=== PATIENT | male | born 1955 | race Caucasian/White ===

== ENCOUNTER 2019-12-26 08:17 | Inpatient (IN) ==
--- NOTE | 2019-12-17 11:13 | Anesthesiology Consultation ---
Date of Service December 17, 2019 Assessment & Plan (1) Encounter for pre-operative examination: Chart Review Chart Review: Acceptable Risk for Surgery (pending preop Covid testing results ) and Patient NOT seen in Pre Admission Testing Per nursing assessment 12/15/2019, patient denies any recent travel. No known Covid positive contacts or Covid related symptoms. Scheduled for preop Covid testing 12/19/[address] Brown's office. Seen by cardio 11/28/2019 = patient presents for preop cardiovascular risk assessment. Patient is to " undergo an intermediate cardiovascular risk (orthopedic) surgery. Over the past 30 days, there has been no active cardiovascular conditions defined as: Acute coronary syndrome, decompensated HF, severe, symptomatic valvular heart disease or symptomatic cardiac arrhythmia. Patient has no cardiovascular risk factors defined as: Ischemic heart disease, prior/compensated heart failure, diabetes requiring insulin or renal failure with creatinine greater than 2. Most recently had an exercise treadmill stress test completed. His exercise was limited due to his back condition. He did achieve 5 METS on the treadmill. The EKG is nondiagnostic for ischemia due to not achieving 85% of maximum predicted heart rate. Patient recently had a transthoracic echocardiogram completed which demonstrated normal left ventricular systolic function with an ejection fraction of 55%. There is no significant valvular disease." BP in clinic today is poorly controlled. Long history of hypertension. Do suspect that high pain level in his back and left lower extremity is a major contributor to hypertension. Will need aggressive management of hypertension going forward. Patient prescribed clonidine 0.2 mg at bedtime. Admits to missing doses. Elevated BP may be partly due to rebound hypertension. Clinically he has no neurological symptoms, chest pain or dyspnea beyond what he normally experiences. At this time I have urged medication comp liance. " Based on his history, physical examination and the above findings, do not recommend further invasive or noninvasive cardiovascular testing or procedures. Prior to undergoing orthopedic surgery. Patient should be considered a low to intermediate cardiovascular risk candidate." Patient will follow-up with cardio postoperatively to continue management of blood pressure. History Surgery Operation Date: 12/26/19 07:45 Proposed Procedures p T12-L4 Deompression Fusion, Spinal Cord Monitoring - René Brown, DO Height/Weight Height: 5 ft 8 in Weight: 115.666 kg Allergies Allergy/AdvReac Type Severity Reaction Status Date / Time diclofenac [From Voltaren] Allergy Hives Verified 12/15/19 11:51 Medications Home Medications Medication Instructions Recorded Confirmed Last Taken clonidine HCl 0.3 mg PO HS 04/24/19 12/15/19 Unknown cyclobenzaprine 10 mg PO BID 04/24/19 12/15/19 Unknown morphine 15 mg PO BID 04/24/19 12/15/19 Unknown tramadol 50 mg PO Q6H PRN 04/24/19 12/15/19 Unknown aspirin 650 mg PO QAM 12/15/19 12/15/19 Unknown lisinopril [Prinivil] 20 mg PO QAM 12/15/19 12/15/19 Unknown naproxen [Naprosyn] 250 mg PO BID PRN 12/15/19 12/15/19 Unknown sennosides-docusate sodium 1 tab-cap PO UD PRN 12/15/19 12/15/19 Unknown [Senokot-S] Past Medical History Medical History Anxiety Hearing deficit Bilaterally Hyperlipidemia Hypertension Obesity Poor historian Spinal stenosis Past Family History Family History Mother COPD (chronic obstructive pulmonary disease) Other No family history of adverse response to anesthesia Past Surgical History Surgical History History of repair of rotator cuff LEFT History of tonsillectomy Hx of neck surgery REPAIR FROM ACCIDENT> ROM UP AND DOWN LIMITED Social History Smoking Status: Current every day smoker tobacco type: cigarettes Smoking cigarettes per day: 1 ppd Do You Dip or Chew Tobacco: No Hx Alcohol Use: Yes Alcohol type: beer alcohol intake frequency: a few times a month Hx Substance Use: No substance use type: does not use Testing Laboratory Results Laboratory Tests 11/20/19 11/20/19 11/20/19 13:53 13:53 13:53 WBC 8.35 Hgb 16.5 Hct 48.1 Plt Count 290 PT 10.5 INR 1.0 Sodium 141 Potassium 4.6 Chloride 108 H Carbon Dioxide 30 BUN 20 H Creatinine 1.37 Glucose 89 11/20/19= UA: Negative Electrocardiogram Date: 11/28/19 Sinus rhythm at 73 bpm. Incomplete right bundle branch block. Voltage criteria for LVH. Voltage criteria without ST/T abnormality may be normal. Chest X-Ray Date: 04/29/19 Findings: + NAD Chronic appearing left AC joint separation. Hiatal hernia may be present versus right Bochdalek hernia. Echocardiogram Date: 05/08/19 EF: 55% LV Function: normal Other Findings: + LVH (mild/concentric ) Valvular Disease: + no significant valvular disease Stress Test Date: 05/26/19 Type: exercise Inconclusive treadmill exercise stress test secondary to limited exercise tolerance on account of patient's back pain/spasms. There are no ischemic EKG changes at the level of exercise achieved. 5 METS achieved with MPHR of 73%.
[~2019-12-26 08:17] MED LIST: ACETAMINOPHEN 500 MG TAB PO SCH; ALBUMIN HUMAN 5% 12.5 GM/250 ML VIAL IV ONE; CeleBREX 200 MG CAP PO SCH; GABAPENTIN 300 MG CAP PO SCH; LR 15ML/HR IV SCH; ceFAZolin 2000MG 2,000 MG/15 ML SYR IV SCH
[2019-12-26] MEDS ORDERED: MIDAZOLAM HCL 1 MG/ML 2ML VIAL ONE (08:51)
[2019-12-26] MEDS ORDERED: fentaNYL citrate 100 MCG/2 ML VIAL ONE ×2 (08:52→14:06)
[2019-12-26] MEDS ORDERED: HYDROmorphone INJ 2 MG/ML SYR/VIAL ONE (08:52)
[2019-12-26] MEDS ORDERED: ONDANSETRON INJ 2 MG/ML 2 ML VIAL IV PRN ×2 (09:19→15:06)
[2019-12-26] MEDS ORDERED: HYDROmorphone INJ 2 MG/ML SYR/VIAL IV PRN (09:19)
[2019-12-26] MEDS ORDERED: ePHEDrine sulfate 50 MG/ML AMP IV PRN (09:19)
[2019-12-26] MEDS ORDERED: LABETALOL HCL IV 5 MG/ML 20ML IV PRN (09:19)
[2019-12-26] MEDS ORDERED: PHENYLEPHRINE 100MCG/ML 5ML SYR IV PRN (09:19)
[2019-12-26] MEDS ORDERED: ATROPINE SULFATE 0.1 MG/ML 10ML SYR IV PRN (09:19)
[2019-12-26] MEDS ORDERED: MEPERIDINE HCL 25 MG/ML CARP/VIAL IV PRN (09:19)
--- NOTE | 2019-12-26 09:51 | History & Physical Bridge Note ---
Date of Service December 26, 2019 History & Physical Bridge Note I have examined the patient, reviewed the History & Physical and in the interval since the performance of the History & Physical I have noted the following changes of clinical significance: no changes noted
--- NOTE | 2019-12-26 09:52 | History & Physical Report ---
Date of Service December 26, 2019 Assessment & Plan (1) Neurogenic claudication due to lumbar spinal stenosis: Admission and Anticipated Discharge Date Admission Date: T12-L4 decompression fusion History of Present Illness Chief Complaint: Back and bilateral leg pain Primary Care Provider: Kev Bray This is a 64-year-old male who presents with chronic persistent back and bilateral leg pain peer after failing course of nonoperative care is here for surgical intervention. Allergies Allergy/AdvReac Type Severity Reaction Status Date / Time diclofenac [From Voltaren] Allergy Hives Verified 12/26/19 09:25 Home Medications Home Medications Medication Instructions Recorded Confirmed Type clonidine HCl 0.3 mg PO HS 04/24/19 12/26/19 History cyclobenzaprine 10 mg PO BID 04/24/19 12/26/19 History morphine 15 mg PO BID 04/24/19 12/26/19 History tramadol 50 mg PO Q6H PRN 04/24/19 12/26/19 History aspirin 650 mg PO QAM 12/15/19 12/26/19 History lisinopril [Prinivil] 20 mg PO QAM 12/15/19 12/26/19 History naproxen [Naprosyn] 250 mg PO BID PRN 12/15/19 12/26/19 History sennosides-docusate sodium 1 tab-cap PO UD PRN 12/15/19 12/26/19 History [Senokot-S] Past Med/Surg History Medical History Anxiety Hearing deficit Bilaterally Hyperlipidemia Hypertension Obesity Poor historian Spinal stenosis Surgical History History of repair of rotator cuff LEFT History of tonsillectomy Hx of neck surgery REPAIR FROM ACCIDENT> ROM UP AND DOWN LIMITED Family History Mother COPD (chronic obstructive pulmonary disease) Other No family history of adverse response to anesthesia Social History Smoking Status: Current every day smoker Cigarettes Per Day: 1 ppd; Second Hand Exposure: No; Do You Dip or Chew Tobacco: No; Tobacco Cessation Education Requested by Patient: No Hx Alcohol Use: Yes Alcohol type: beer Hx Substance Use: No Preferred Language: Croatian Communication Ability: Effective Residential Housekeeper Required: No Beliefs That Will Affect Care: None Current Living Situation: Alone Feels Safe at Home: Yes Safety Concerns: Feels Safe At This Time Assistive Devices: Crutches Physical Exam Physical Exam: Patient is alert and oriented Heart regular rate and rhythm Lungs clear to auscultation Results & Data ([facility]) Vital Signs (Past 12 Hours) Vital Signs Temp Pulse Resp BP BP Pulse Ox 12/26/19 09:10 37.1 C 79 20 183/112 H 159/84 H 96
[2019-12-26] MEDS ORDERED: EPINEPHrine INJ 1 MG/ML AMP ONE (10:18)
[2019-12-26] MEDS ORDERED: BACITRACIN INJ 50,000 UNIT VIAL ONE (10:18)
[2019-12-26] MEDS ORDERED: BUPIVACAINE 0.5 % 5 MG/1 ML MPF 30ML VIAL ONE (10:18)
[2019-12-26] MEDS ORDERED: ALBUMIN HUMAN 5% 12.5 GM/250 ML VIAL IV ONE (10:21)
[2019-12-26] MEDS ORDERED: PROPOFOL IV EMULSION 10 MG/ML 20 ML VIAL IV ONE (10:56)
[2019-12-26] MEDS ORDERED: LARYING-O-JET KIT (LTA) ONE (10:56)
[2019-12-26] MEDS ORDERED: DEXAMETHASONE SOD INJ 4 MG/ML VIAL ONE (10:56)
[2019-12-26] MEDS ORDERED: GLYCOPYRROLATE 0.2 MG/ML VIAL ONE (10:56)
[2019-12-26] MEDS ORDERED: NEOSTIGMINE METHYLSULFATE 1 MG/ML 10ML VIAL ONE (10:56)
[2019-12-26] MEDS ORDERED: ONDANSETRON INJ 2 MG/ML 2 ML VIAL ONE (10:56)
[2019-12-26] MEDS ORDERED: LIDOCAINE HCL 2% 2 ML VIAL/AMP(20MG/ML) INFIL ONE (10:56)
[2019-12-26] MEDS ORDERED: ROCURONIUM BROMIDE 10 MG/ML 5 ML VIAL IV ONE (10:56)
[2019-12-26] MEDS ORDERED: KETAMINE 50 MG/5 ML SYRINGE ONE (11:02)
[2019-12-26] MEDS ORDERED: FLOSEAL HEMOSTATIC MATRIX 10ML TOP ONE (11:06)
[2019-12-26] MEDS ORDERED: PHENYLEPHRINE 100MCG/ML 5ML SYR ONE (11:37)
--- NOTE | 2019-12-26 13:33 | Operative Report ---
Post Operative Report Pre & Post Diagnosis Operation Date: 12/26/19 10:25 Pre-Op Diagnosis: Neurogenic claudication due to lumbar spinal stenosis Post-Op Diagnosis: Neurogenic claudication due to lumbar spinal stenosis I identified the patient and participated in the time-out.: Yes Procedure Operation Date: 12/26/19 10:25 Actual Procedures #1 lumbar decompression with bilateral medial facetectomies and foraminotomies L1-2, L2-3 and L3-4. #2 posterior spinal fusion T11-T12, T12-L1, L1-L2, L2-L3 and L3-L4. #3 placement posterior segmental instrumentation T12-L4. #4 interbody fusion L3-4. #5 placement of peek cage 12 x 26 mm at L3-4. #6 placement locally harvested morselized autograft in the posterior lateral gutters. #7 placement infuse collagen sponge, master graft in the posterior lateral gutters and osteopenic body space. Surgeon René Brown, DO Loader Machine David Oneill Estimated Blood Loss 500 Findings See Below The patient is 5 foot 8 inches tall weighing over 110 kg with a BMI in excess of 37. The patient's body habitus did add significant technical difficulty requiring her deepest retractors and longest instruments in order to perform his procedure. This at least 50% increase to the operative time. Specimens None Indications This is a 64-year-old male who presents with above-mentioned diagnosis after failing course of nonoperative care is here for surgical invention. Description of Procedure Patient was met with identified informed consent obtained. Patient was then taken to the operative suite underwent intubation placed in the prone position the Oscar table atop the Gera frame. All bony prominences well-padded eyes inspected to ensure no external pressure placed upon up at this point the thoracolumbar spine was prepped and draped in a normal sterile fashion. Sharp dissection with the assistance of Bovie cautery was performed down to and exposing the lamina and transverse processes of T10-11 T12 L1-L2-L3 and L4 bilaterally. From a caudal cephalad fashion complete laminectomy of all 3 L2 and L1 was performed including bilateral medial facetectomies and foraminotomies addressing severe spinal stenosis. Pedicle screws were then placed in T12-L1 L2-L3-L4 bilaterally with assistance of fluoroscopy and appropriately sized prachi placed. By way of a transforaminal portion left complete discectomy of L3-4 was performed endplates curetted to subcortical being bone and a 12 x 26 mm peek cage filled with osteobone graft tapped in position. The rods were then locked in final position bilaterally. The transverse processes of T11-T12 L1-L2-L3 and L4 were then burred to subcortical bleeding bone. Infuse collagen sponge master graft and local autograft was placed in the posterior lateral gutters. 15 round ARNULFO drain inserted. The incision was then closed with 1 Vicryl in the fascia 2-0 Vicryl subcutaneously and 4 Monocryl for final skin closure. Steri-Strip sterile dressings placed. Patient will continue PACU stable condition. Please note spinal cord monitoring was utilized at the procedure no changes noted. Lastly David Oneill was present for the entire surgery involved the patient positioning complex portions of the surgery and final skin closure. I attest to the content of the Intraoperative Record and any orders documented therein. Any exceptions are noted below.
--- NOTE | 2019-12-26 13:49 | Fluoroscopy Report ---
INTRAOPERATIVE RADIOGRAPHS SOCIAL HISTORY: T12-L4 spinal fusion. Fluoroscopy time: 40 seconds. FINDINGS: 4 spot fluoroscopic views of the lumbar spine are presented. There has been discectomy at L 3-L4 with laminectomy and posterior fusion from T12-L4. Interpedicular screws are present at all leve ls. The orthopedic hardware appears intact. IMPRESSION: Intraoperative images from T12-L4 spinal fusion as above. Electronically signed by: Silvano Pfeiffer M.D. 12/26/2019 1:47 PM
[2019-12-26] MEDS: fentaNYL citrate 100 MCG/2 ML VIAL IV PRN ×4 (14:18→14:33)
--- NOTE | 2019-12-26 14:28 | Anesthesiology Progress Note ---
Date of Service December 26, 2019 Anesthesia Post Procedure Vital Signs Vital Signs: Temp Pulse Pulse Resp BP BP Pulse Ox 12/26/19 14:20 75 14 145/94 H 100 12/26/19 14:11 36.1 C L 89 16 151/92 H 98 12/26/19 09:10 37.1 C 79 20 183/112 H 159/84 H 96 Pain Intensity Left Hip: Pain Intensity: 2 Back: Pain Intensity: 2 Transfer of Care Handoff Completed per policy Notes Mental Status: alert / awake / arousable Patient Amnestic to Procedure: Yes Nausea / Vomiting: adequately controlled Pain: adequately controlled Airway Patency, RR, SpO2: stable & adequate BP & HR: stable & adequate Hydration State: stable & adequate Anesthetic Complications: no major complications apparent and Pt Satisfied with anesthetic care
[2019-12-26] MEDS ORDERED: SOD PHOSPHATE/SOD BIPHOSPHATE ENEMA 132 ML BTL PR PRN (15:06)
[2019-12-26] MEDS ORDERED: ONDANSETRON 4 MG OD TAB PO PRN (15:06)
[2019-12-26] MEDS ORDERED: ALUMINUM/MAGNESIUM SUSP 30 ML UDC PO PRN (15:06)
[2019-12-26] MEDS ORDERED: DO NOT ADMINISTER FLU VACCINE PRN (15:06)
[2019-12-26] MEDS ORDERED: HYDROmorphone INJ 0.5 MG/0.5 ML SYR IV PRN (15:06)
[2019-12-26] MEDS ORDERED: PROMETHAZINE HCL 12.5 MG in SODIUM CHLORIDE 0.9% 50 ML IV PRN (15:06)
[2019-12-26] MEDS ORDERED: MAGNESIUM HYDROXIDE SUSP 30 ML UDC PO PRN (15:06)
[2019-12-26] MEDS ORDERED: diphenhydrAMINE Capsule 25 MG CAP PO PRN (15:06)
[2019-12-26] MEDS ORDERED: ACETAMINOPHEN 1,000 MG/100 ML VIAL IV PRN (15:06)
[2019-12-26] MEDS ORDERED: LORazepam 0.5 MG/1 ML VIAL IV PRN (15:06)
[2019-12-26] MEDS ORDERED: METOCLOPRAMIDE HCL INJ 5 MG/ML 2 ML VIAL IV PRN (15:06)
[2019-12-26] MEDS ORDERED: traMADol HCL 50 MG TABLET PO PRN (15:06)
[2019-12-26] MEDS ORDERED: NALOXONE HCL 0.4 MG/1 ML VIAL/CARP IV PRN (15:06)
[2019-12-26] MEDS ORDERED: DO NOT ADMINISTER PNEUMOCOCCAL VACCINE PRN (15:06)
[2019-12-26] MEDS ORDERED: hydrOXYzine HCl 25 MG TAB PO PRN (15:06)
[2019-12-26] MEDS ORDERED: FAMOTIDINE 20 MG TAB PO PRN (15:06)
[2019-12-26] MEDS ORDERED: DOCUSATE SODIUM/SENNA 50/8.6MG TAB PO PRN (15:06)
[2019-12-26] MEDS ORDERED: bisacodyL 10 MG SUPP PR PRN (15:06)
[2019-12-26] MEDS ORDERED: ACETAMINOPHEN 500 MG TAB PO PRN (15:06)
[2019-12-26] MEDS: SODIUM CHLORIDE 0.9% 1000ML 1,000 ML IV SCH ×2 (15:56→22:05)
[2019-12-26] MEDS: HYDROmorphone INJ 1 MG/ML SYRINGE IV PRN (16:00)
--- NOTE | 2019-12-26 17:50 | Hospitalist Consultation ---
Date of Consultation December 26, 2019 Assessment & Plan (1) Neurogenic claudication due to lumbar spinal stenosis: - POD#0 T12-L4 decompression and fusion by Dr. Brown - activity and wound care orders as per ortho - pain control with bowel regimen - PT/OT - monitor H/H for acute blood loss anemia and transfuse blood products PRN - EBL 500 cc (2) Hypertension: -BP mildly elevated, pain possibly contributing -Did not take morning dose of lisinopril, will give lisinopril 20 mg p.o. now -Continue home dose of clonidine at bedtime (3) DVT prophylaxis: -TEDs/SCDs as per spine Ortho Thank you for this consultation. We will follow the patient with you during their hospital stay. You can reach a member of the [facility] Hospitalist Team 11/09 via pager @ [phone]. Supervising Physician Co-Signing Physician Notes Pt was seen and examined. Agreed with Triny GARCIA exam, assessment and plan. 64-year-old male with PMH HTN, tobacco abuse, status post T12-L4 decompression and fusion performed today by Dr. Brown after failed conservative management. Postoperatively, the patient is doing well. No postop complications. Denies any chest pain, palpitation, dizziness and SOB. He said that pain is well controlled. Continue incentive spirometry. Pain control. PT/OT eval as per ortho. Fall precaution. Continue pain management as per ortho. Continue monitor H/H. Continue monitor closely. MD Dylan History of Present Illness Reason for Consultation: Postop medical management Requesting Physician: Dr. Brown Attending Physician: Dr. Richardson History of Present Illness 64-year-old male with PMH HTN, tobacco abuse, and other problems listed below who is status post T12-L4 decompression fusion today with Dr. Brown. Postoperatively, the patient is doing well. He reports he is currently having some incisional pain however just recently received some IV pain medication. Patient denies numbness, tingling, weakness to lower extremities. No chest pain or shortness of breath. Denies lightheadedness and dizziness. No abdominal pain or nausea. Jensen catheter is in place draining clear yellow urine. Allergies Allergy/AdvReac Type Severity Reaction Status Date / Time diclofenac [From Voltaren] Allergy Hives Verified 12/26/19 09:25 Home Medications Home Medications Medication Instructions Recorded Confirmed Type clonidine HCl 0.3 mg PO HS 04/24/19 12/26/19 History cyclobenzaprine 10 mg PO BID 04/24/19 12/26/19 History tramadol 50 mg PO Q6H PRN 04/24/19 12/26/19 History aspirin 650 mg PO QAM 12/15/19 12/26/19 History lisinopril [Prinivil] 20 mg PO QAM 12/15/19 12/26/19 History naproxen [Naprosyn] 250 mg PO BID PRN 12/15/19 12/26/19 History sennosides-docusate sodium 1 tab-cap PO UD PRN 12/15/19 12/26/19 History [Senokot-S] morphine [MS Contin] 15 mg PO BID 12/26/19 12/26/19 History Patient History Medical History (Updated 12/26/19 @ 17:53 by JOSE Givens) Anxiety Hearing deficit Bilaterally Hyperlipidemia Hypertension Obesity Poor historian Spinal stenosis Surgical History History of repair of rotator cuff LEFT History of tonsillectomy Hx of neck surgery REPAIR FROM ACCIDENT> ROM UP AND DOWN LIMITED Family History Mother COPD (chronic obstructive pulmonary disease) Other No family history of adverse response to anesthesia Social History Smoking Status: Current every day smoker Cigarettes Per Day: 1 ppd; Second Hand Exposure: No; Do You Dip or Chew Tobacco: No; Tobacco Cessation Education Requested by Patient: No Hx Alcohol Use: Yes Alcohol type: beer Hx Substance Use: No Preferred Language: Kyrgyz Communication Ability: Effective Crane Follower Required: No Beliefs That Will Affect Care: None marital status: Single Current Living Situation: Alone Feels Safe at Home: Yes Safety Concerns: Feels Safe At This Time Assistive Devices: Walker Review of Systems Review of Systems: ROS per HPI, all other systems reviewed and negative Physical Exam Constitutional: WD/WN, vitals as above Eyes: PERRL, conjunctivae normal, anicteric sclerae ENMT: external ear and nose normal, oropharynx normal Respiratory: normal respiratory effort, lungs clear to auscultation Cardiovascular: Rate/Rhythm: regular rate and regular rhythm Vessels: normal peripheral pulses Extremities: no edema Gastrointestinal (Abdomen): normal bowel sounds, soft, nontender, no hepatosplenomegaly Musculoskeletal: no cyanosis or clubbing, extremities motor strength 5/5 S/p back surgery, drain in place draining small amount of bloody drainage, pedal pushes and pull strong bilaterally Skin: no rashes, warm and dry Neurologic: PERRL, EOMI, accommodation nl, no face palsy, no dysarthria Psychiatric: A+Ox3, euthymic affect Results & Data Results & Data ([facility]) Vital Signs (Past 12 Hours) Vital Signs Temp Pulse Pulse Resp BP BP Pulse Ox 12/26/19 16:52 80 16 153/93 H 99 12/26/19 15:55 77 16 147/90 H 100 12/26/19 15:32 36.5 C 79 16 169/94 H 100 12/26/19 14:55 36.4 C L 81 16 158/97 H 99 12/26/19 14:40 86 14 151/89 H 100 12/26/19 14:30 76 14 138/89 100 12/26/19 14:20 75 14 145/94 H 100 12/26/19 14:11 36.1 C L 89 16 151/92 H 98 12/26/19 09:10 37.1 C 79 20 183/112 H 159/84 H 96
[2019-12-26] MEDS ORDERED: lisinopril 20 MG TAB PO STA (17:52)
[2019-12-26] MEDS: ceFAZolin 2000MG 2,000 MG/15 ML SYR IV SCH (18:55)
[2019-12-26] MEDS: oxyCODONE HCL IR 5 MG TAB (IMMEDIATE RELEASE) PO PRN (18:55)
[2019-12-26] MEDS: DOCUSATE SODIUM/SENNA 50/8.6MG TAB PO SCH (20:45)
[2019-12-26] MEDS: MoRPHine SULFATE CR 15 MG TABCR PO SCH (20:51)
[2019-12-26] MEDS: cloNIDine HCL 0.1 MG TAB PO SCH (20:51)
[2019-12-27] MEDS: ceFAZolin 2000MG 2,000 MG/15 ML SYR IV SCH (02:16)
[2019-12-27] MEDS: oxyCODONE HCL IR 5 MG TAB (IMMEDIATE RELEASE) PO PRN ×4 (02:17→19:12)
[2019-12-27] MEDS: HYDROmorphone INJ 1 MG/ML SYRINGE IV PRN ×3 (03:15→11:46)
[2019-12-27] MEDS: SODIUM CHLORIDE 0.9% 1000ML 1,000 ML IV SCH (04:32)
[2019-12-27] MEDS: POLYETHYLENE (MIRALAX) 17 GM PACK PO SCH ×3 (05:23→17:37)
[2019-12-27] MEDS: lisinopril 20 MG TAB PO SCH (07:47)
[2019-12-27] MEDS: ASPIRIN 325 MG ECTAB PO SCH (07:47)
[2019-12-27] MEDS: MoRPHine SULFATE CR 15 MG TABCR PO SCH ×2 (07:48→21:44)
[2019-12-27 08:12] LABS: Basophils # (auto) 0.01 K/uL (0-0.2); Basophils % (auto) 0.1 %; Hematocrit (blood only) 35.1 % (42-52); Hemoglobin 11.8 g/dL (14.0-18.0); Immature Granulocytes # (auto) 0.05 K/uL (0.00-0.02); Immature Granulocytes % (auto) 0.3 %; Lymphocytes # (auto) 1.24 K/uL (1.2-3.4); Lymphocytes % (auto) 7.2 %; Mean Corpuscular Hgb Conc 33.6 g/dL (32-36); Mean Corpuscular Volume 92.1 fL (80-100); Mean Platelet Volume 8.6 fL (7.4-10.4); Monocytes # (auto) 1.28 K/uL (0.11-0.59); Monocytes % (auto) 7.4 %; Neutrophils # (auto) 14.66 K/uL (1.4-6.5); Platelet Count 276 K/uL (130-400); RDW Coefficient of Variation 14.3 % (11.5-14.5); RDW Standard Deviation 48.6 fL (36.4-46.3); Red Blood Count 3.81 M/uL (4.7-6.1); White Blood Count 17.24 K/uL (4.8-10.8)
[2019-12-27 08:42] LABS: BUN Creatinine Ratio 19.5 (10-20); Calcium 7.9 mg/dl (8.5-10.1); Creatinine Clr Calc Pharmacy 89.3 ml/min; Est GFR (African American) 90.7; Est GFR (Non-African American) 78.2; Potassium 4.4 mmol/L (3.5-5.1)
--- NOTE | 2019-12-27 11:26 | Orthopedic Progress Note ---
Date of Service December 27, 2019 Assessment & Plan (1) Neurogenic claudication due to lumbar spinal stenosis: Admission and Anticipated Discharge Date Admission Date: December 26, 2019 At this time we we will continue physical therapy occupational therapy I will maintain the drain today. I have increased his morphine to 30 mg p.o. twice daily. Subjective Patient complaining mostly of back pain. He does feel his leg symptoms are improved. Physical Exam Physical Exam: On exam he is always uncomfortable. He is cooperative however. He has good strength testing. Results & Data ([facility]) Vital Signs (Past 12 Hours) Vital Signs Temp Pulse Resp BP Pulse Ox 12/27/19 11:09 36.8 C 85 18 156/101 H 97 12/27/19 07:45 36.6 C 71 16 156/100 H 96 12/27/19 02:52 36.6 C 75 18 152/84 H 94
[2019-12-27] MEDS: LORazepam 0.5 MG TAB PO PRN (11:45)
[2019-12-27] MEDS: hydrALAZINE HCL 20 MG/ML VIAL IV PRN (17:36)
--- NOTE | 2019-12-27 17:44 | Hospitalist Progress Note ---
Date of Service December 27, 2019 Assessment & Plan (1) Neurogenic claudication due to lumbar spinal stenosis: - POD#1 T12-L4 decompression and fusion by Dr. Brown - Management of blood pressure and wheezing noted below (2) Hypertension: -BP mildly elevated, likely secondary to pain Add as needed hydralazine IV Continue lisinopril and clonidine Monitor closely Wheezing, possible underlying COPD Patient is an active smoker Denies shortness of breath or cough, but has wheezing on auscultation States he was prescribed with an inhaler but cannot afford the second inhaler Start Symbicort, and as needed albuterol Monitor (3) DVT prophylaxis: -TEDs/SCDs as per spine Ortho Thank you for this consultation. We will follow the patient with you during their hospital stay. You can reach a member of the [facility] Hospitalist Team 11/09 via pager @ [phone]. Admission and Anticipated Discharge Date Admission Date: December 26, 2019 Subjective Follow-up status post back surgery Resting in bed, sleeping, but easily awakened States he feels fine overall except for back pain, currently being managed with as needed analgesics Denies headache, dizziness, chest pain, palpitations, shortness of breath, nausea vomiting Ambulated in the room today with no problems No other symptoms Review of Systems Review of Systems: All systems reviewed & are unremarkable except as noted in Subjective Physical Exam Physical Exam: General- oriented x 3, not in distress, speaks in sentences with no effort or accessory muscle use Eyes- anicteric Neck- no JVD Lungs-positive bilateral wheezing-mild, scattered, no crackles Good air entry bilaterally Heart- normal rate, regular rhythm; no murmurs Abdomen- normal bowel sounds, nondistended, soft, nontender Back-heavy dressing in place, with ARNULFO drain, sanguinous output, small amount Extremities- no pretibial edema, no calf tenderness Neuro- alert, oriented x 3; no gross focal neurologic deficits Skin- warm & dry Results & Data Results & Data ([facility]) Vital Signs (Past 12 Hours) Vital Signs Temp Pulse Resp BP BP Pulse Ox 12/27/19 17:31 89 172/72 H 12/27/19 16:16 161/72 H 12/27/19 16:15 36.5 C 81 22 161/88 H 100 12/27/19 12:41 149/86 H 12/27/19 11:09 36.8 C 85 18 156/101 H 97 12/27/19 07:45 36.6 C 71 16 156/100 H 96 Laboratory Results Laboratory Results - last 24 hr 12/27/19 12/27/19 07:42 07:42 WBC 17.24 H RBC 3.81 L Hgb 11.8 L Hct 35.1 L MCV 92.1 MCH 31.0 MCHC 33.6 RDW Std Deviation 48.6 H RDW Coeff of Kiera 14.3 Plt Count 276 MPV 8.6 Immature Gran % (Auto) 0.3 Neut % (Auto) 85.0 Lymph % (Auto) 7.2 [place] % (Auto) 7.4 Eos % (Auto) 0.0 Baso % (Auto) 0.1 Neut # (Auto) 14.66 H Lymph # (Auto) 1.24 [place] # (Auto) 1.28 H Eos # (Auto) 0.00 Baso # (Auto) 0.01 Immature Gran # (Auto) 0.05 H Sodium 139 Potassium 4.4 Chloride 107 Carbon Dioxide 26 Anion Gap 6.0 BUN 20 H Creatinine 1.01 Est Cr Clr Drug Dosing 89.3 Est GFR ( Amer) 90.7 Est GFR (Non-Af Amer) 78.2 BUN/Creatinine Ratio 19.5 Glucose 106 H Calcium 7.9 L
[2019-12-27] MEDS: ALBUTEROL HFA 8 GM INHALER INH PRN (19:24)
[2019-12-27] MEDS: DOCUSATE SODIUM/SENNA 50/8.6MG TAB PO SCH ×2 (20:55→21:44)
[2019-12-27] MEDS: cloNIDine HCL 0.1 MG TAB PO SCH (21:44)
[2019-12-28] MEDS: oxyCODONE HCL IR 5 MG TAB (IMMEDIATE RELEASE) PO PRN ×3 (00:33→11:19)
[2019-12-28] MEDS: POLYETHYLENE (MIRALAX) 17 GM PACK PO SCH ×4 (00:35→17:28)
[2019-12-28] MEDS: ASPIRIN 325 MG ECTAB PO SCH (07:43)
[2019-12-28] MEDS: lisinopril 20 MG TAB PO SCH (07:43)
[2019-12-28] MEDS: FLUTICASONE/VILANTEROL 200/25MCG 14 PUFFS/INHALER INH SCH (07:43)
[2019-12-28] MEDS: MoRPHine SULFATE CR 15 MG TABCR PO SCH ×2 (07:44→20:36)
[2019-12-28] MEDS: hydrALAZINE HCL 20 MG/ML VIAL IV PRN (07:44)
[2019-12-28] MEDS: ALBUTEROL HFA 8 GM INHALER INH PRN (07:52)
--- NOTE | 2019-12-28 09:11 | XRay Report ---
XR chest 1V portable CLINICAL HISTORY: cough COMPARISON STUDY: Chest radiograph April 29, 2019. FINDINGS: Lung volumes are diminished. There is moderate enlargement of the cardiac silhouette, accen tuated on this portable AP exam. No pneumothorax or pleural effusion is noted. There is no evidence f or pulmonary edema. Mild bibasilar opacities are noted which favor atelectasis. Postoperative finding s suggestive of distal left clavicular resection are incidentally noted. IMPRESSION: 1. Low lung volumes with bibasilar opacities that favor atelectasis. 2. Cardiomegaly, accentuated on this portable AP exam. ACT 112: Negative or not required by law. Electronically signed by: Skyler Chacon M.D. 12/28/2019 9:09 AM
[2019-12-28] MEDS: LORazepam 0.5 MG TAB PO PRN (10:59)
--- NOTE | 2019-12-28 10:59 | Orthopedic Progress Note ---
Date of Service December 28, 2019 Assessment & Plan (1) Neurogenic claudication due to lumbar spinal stenosis: Admission and Anticipated Discharge Date Admission Date: December 26, 2019 This time we will continue physical therapy occupational therapy. Anticipate discharge to rehab early next week. Subjective Patient complaining mostly of back pain leg symptoms improved. Physical Exam Physical Exam: Patient is in the chair at the bedside. He has reasonable strength testing. He is uncomfortable. Results & Data ([facility]) Vital Signs (Past 12 Hours) Vital Signs Temp Pulse Resp BP BP Pulse Ox 12/28/19 09:51 121/72 12/28/19 07:53 80 20 94 12/28/19 07:36 37.0 C 89 20 164/77 H 96 12/27/19 23:00 36.9 C 92 H 20 156/78 H 96
[2019-12-28] MEDS: DEXAMETHASONE SOD PHOSPHATE 8 MG in SYRINGE 0 ML IV SCH (11:21)
[2019-12-28] MEDS: LEVALBUTEROL 1.25MG/0.5ML NEB INH SCH ×2 (12:54→19:22)
[2019-12-28] MEDS: IPRATROPIUM BROMIDE NEB SOLN 0.02% 2.5 ML VIAL INH SCH ×2 (12:54→19:21)
[2019-12-28] MEDS ORDERED: XOPENEX/ATROVENT 1.25mg/0.5MG NEB COMBO NEB SCH (13:00)
[2019-12-28] MEDS: HYDROmorphone INJ 1 MG/ML SYRINGE IV PRN (13:48)
--- NOTE | 2019-12-28 14:42 | Hospitalist Progress Note ---
Date of Service December 28, 2019 Assessment & Plan (1) Neurogenic claudication due to lumbar spinal stenosis: - POD#1 T12-L4 decompression and fusion by Dr. Brown - Management of blood pressure and wheezing noted below (2) Hypertension: -BP mildly elevated, likely secondary to pain Add as needed hydralazine IV Continue lisinopril and clonidine Improved Wheezing, possible underlying COPD Patient is an active smoker Denies shortness of breath or cough, but has wheezing on auscultation CXR no pneumonia States he was prescribed with an inhaler but cannot afford the second inhaler Started Symbicort, and as needed albuterol improving add Nebs q6h, on IV Decadron (3) DVT prophylaxis: -TEDs/SCDs as per spine Ortho Thank you for this consultation. We will follow the patient with you during their hospital stay. You can reach a member of the [facility] Hospitalist Team 11/09 via pager @ [phone]. Admission and Anticipated Discharge Date Admission Date: December 26, 2019 Subjective ff up for s/p lumbar spine surgery noted by RN to be wheezing this AM, no SOB CXR no pneumonia, effusion COVID PCR negative seen resting in bedside chair, sitting up, not in distress denies SOB, cough, sputum has mild headache reports pain on the surgical site about the same no other symptoms Review of Systems Review of Systems: All systems reviewed & are unremarkable except as noted in Subjective Physical Exam Physical Exam: General- oriented x 3, not in distress, speaks in sentences with no effort or accessory muscle use Eyes- anicteric Neck- no JVD Lungs- mild scattered wheeze bilaterally Heart- normal rate, regular rhythm; no murmurs Abdomen- normal bowel sounds, nondistended, soft, nontender Extremities- no pretibial edema, no calf tenderness Neuro- alert, oriented x 3; no gross focal neurologic deficits Skin- warm & dry Results & Data Results & Data ([facility]) Vital Signs (Past 12 Hours) Vital Signs Temp Pulse Resp BP BP Pulse Ox 12/28/19 12:53 77 20 96 12/28/19 09:51 121/72 12/28/19 07:53 80 20 94 12/28/19 07:36 37.0 C 89 20 164/77 H 96 Laboratory Results Laboratory Results - last 24 hr 12/28/19 12/28/19 09:29 09:29 COVID-19 Eval Order Covid19 Done at [facility] COVID-19 PCR NEGATIVE
[2019-12-28] MEDS: DOCUSATE SODIUM/SENNA 50/8.6MG TAB PO SCH (20:36)
[2019-12-28] MEDS: cloNIDine HCL 0.1 MG TAB PO SCH (20:36)
[2019-12-29] MEDS: IPRATROPIUM BROMIDE NEB SOLN 0.02% 2.5 ML VIAL INH SCH ×3 (00:06→13:37)
[2019-12-29] MEDS: LEVALBUTEROL 1.25MG/0.5ML NEB INH SCH ×3 (00:06→13:38)
[2019-12-29] MEDS: POLYETHYLENE (MIRALAX) 17 GM PACK PO SCH ×5 (00:40→23:59)
[2019-12-29] MEDS: LORazepam 0.5 MG TAB PO PRN ×3 (00:43→20:37)
[2019-12-29 07:55] VITALS: TEMP 97.7
[2019-12-29] MEDS: MoRPHine SULFATE CR 15 MG TABCR PO SCH ×2 (08:13→20:37)
[2019-12-29] MEDS: DEXAMETHASONE SOD PHOSPHATE 8 MG in SYRINGE 0 ML IV SCH (08:13)
[2019-12-29] MEDS: lisinopril 20 MG TAB PO SCH (08:14)
[2019-12-29] MEDS: ASPIRIN 325 MG ECTAB PO SCH (08:14)
[2019-12-29] MEDS: FLUTICASONE/VILANTEROL 200/25MCG 14 PUFFS/INHALER INH SCH (08:14)
[2019-12-29] MEDS: oxyCODONE HCL IR 5 MG TAB (IMMEDIATE RELEASE) PO PRN ×4 (09:19→23:53)
--- NOTE | 2019-12-29 10:27 | Orthopedic Progress Note ---
Date of Service December 29, 2019 Assessment & Plan (1) Neurogenic claudication due to lumbar spinal stenosis: Admission and Anticipated Discharge Date Admission Date: December 26, 2019 At this time we will continue physical therapy monitor his ARNULFO output anticipate discharge to rehab tomorrow. Subjective Back pain steadily improving. Leg pain controlled. Physical Exam Physical Exam: Patient is in the chair at bedside. Discussed when to testing. Was more comfortable today. Results & Data ([facility]) Vital Signs (Past 12 Hours) Vital Signs Temp Pulse Resp BP Pulse Ox 12/29/19 07:54 36.5 C 67 16 162/98 H 98 12/29/19 07:30 67 17 98 12/29/19 00:07 96 H 18 91
[2019-12-29] MEDS ORDERED: LEVALBUTEROL 1.25MG/0.5ML NEB INH PRN (13:43)
[2019-12-29] MEDS ORDERED: IPRATROPIUM BROMIDE NEB SOLN 0.02% 2.5 ML VIAL INH PRN (13:43)
[2019-12-29] MEDS ORDERED: lisinopril 20 MG TAB PO STA (14:54)
--- NOTE | 2019-12-29 14:58 | Hospitalist Progress Note ---
Date of Service December 29, 2019 Assessment & Plan (1) Neurogenic claudication due to lumbar spinal stenosis: - POD#1 T12-L4 decompression and fusion by Dr. Brown - Management of blood pressure and wheezing noted below (2) Hypertension: -not at goal increase Lisinopril to 40mg po daily monitor BP Wheezing, possible underlying COPD Patient is an active smoker Denies shortness of breath or cough, but has wheezing on auscultation CXR no pneumonia States he was prescribed with an inhaler but cannot afford the second inhaler Started Breo, and as needed nebs; also on Decadron IV for Back Surgery -- wheezing resolved will check with case management re: insurance coverage (3) DVT prophylaxis: -TEDs/SCDs as per spine Ortho Thank you for this consultation. We will follow the patient with you during their hospital stay. You can reach a member of the [facility] Hospitalist Team 11/09 via pager @ [phone]. Admission and Anticipated Discharge Date Admission Date: December 26, 2019 Subjective ff up for s/p lumbar spine surgery with wheezing, BP elevation seen sitting up in bed, not in distress states back pain is still about the same no leg weakness, incontinence denies dyspnea, chest pain, palpitations, dizziness no other symptoms Review of Systems Review of Systems: All systems reviewed & are unremarkable except as noted in Subjective Physical Exam Physical Exam: General- oriented x 3, not in distress, speaks in sentences with no effort or accessory muscle use Eyes- anicteric Neck- no JVD Lungs- clear breath sounds bilaterally, no rales/wheezes Heart- normal rate, regular rhythm; no murmurs Abdomen- normal bowel sounds, nondistended, soft, nontender Back- dressing and drain in place: minimal serosanguinous output Extremities- no pretibial edema, no calf tenderness Neuro- alert, oriented x 3; no gross focal neurologic deficits Skin- warm & dry Results & Data Results & Data ([facility]) Vital Signs (Past 12 Hours) Vital Signs Temp Pulse Resp BP BP Pulse Ox 12/29/19 13:38 58 L 15 96 12/29/19 10:38 169/80 H 12/29/19 07:54 36.5 C 67 16 162/98 H 98 12/29/19 07:30 67 17 98
[2019-12-29] MEDS: cloNIDine HCL 0.1 MG TAB PO SCH (20:38)
[2019-12-29] MEDS: DOCUSATE SODIUM/SENNA 50/8.6MG TAB PO SCH (20:38)
[2019-12-29] MEDS: hydrALAZINE HCL 20 MG/ML VIAL IV PRN (20:48)
[2019-12-29 23:44] VITALS: O2SAT 95
[2019-12-30] MEDS: oxyCODONE HCL IR 5 MG TAB (IMMEDIATE RELEASE) PO PRN ×3 (04:47→15:21)
[2019-12-30] MEDS: POLYETHYLENE (MIRALAX) 17 GM PACK PO SCH (04:53)
[2019-12-30 08:08] VITALS: BP 172/88; PULSE 90
--- NOTE | 2019-12-30 08:44 | Discharge Summary ---
Date of Service December 30, 2019 Admission HPI Per Admitting Provider This is a 64-year-old male who presents with chronic persistent back and bilateral leg pain peer after failing course of nonoperative care is here for surgical intervention. Principal Diagnosis Lumbar spinal stenosis with neurogenic claudication Discharge Data Allergies Allergy/AdvReac Type Severity Reaction Status Date / Time diclofenac [From Voltaren] Allergy Hives Verified 12/26/19 09:25 Consultations 12/26/19 15:06 Consult Case Management - Discharge Planning Routine Consult Hospitalist Routine Procedures Performed Operation Date: 12/26/19 10:25 Actual Procedures p T12-L4 Deompression and Fusion, Spinal Cord Monitoring(Not Applicable) - René Brown DO Ordered Studies 12/26/19 10:25 FL fluoroscopy <1hr Routine FL lumbar spine 2-3V Routine Hospital Course (1) Neurogenic claudication due to lumbar spinal stenosis: Patient went multilevel lumbar decompression fusion tolerated this well was taken to orthopedic for postoperative. Postop day 1 is up and ambulating progressed to postop day #2 and 3 ARNULFO drain decreasing appropriately. Pain steadily improving. Strength intact. Subsequently discharged to rehab. Discharge orders instructions found in the chart for further review. Total Time Total Time Spent Total Time Spent (In Minutes): 20 minutes Discharge Plan Discharge Items Patient Disposition: Transfer Inpatient Rehab Fac Reason For Visit: Spinal Stenosis, Lumbar Region with Neurogenic Cla Discharge Diagnosis: Lumbar spinal stenosis with neurogenic claudication Activity: As commented below Non-emergency contact: Primary Care Provider Call non-emergency contact if: you have any medication questions Follow-up/Referrals: Kev Bray D.O. [Primary Care Provider] - Diet: Regular Addtl Attending Provider Instructions: ACTIVITY RECOMMENDATIONS: SELF CARE INSTRUCTIONS AFTER THORACIC/LUMBAR FUSIONS 1. You may walk to your tolerance. It is good exercise for your legs and back. Expect some back and intermittent leg aches and pains. 2. You may perform "counter-top" level activities (make a sandwich, robbi with a project, etc.). 3. No bending or lifting of more than 10 pounds or back twisting of any nature (roll like a log when turning in bed). 4. You may ride in a car for 20-30 minutes at a time. No driving until after your first visit with your doctor. 5. Frequent changes of position and restricting sitting to 30 minutes at a time will help limit the amount of back spasms and stiffness you may experience. 6. You may discontinue the use of ambulatory aids (cane, crutches, etc.) once your strength and confidence allow. 7. You may cementer machine the shower and let water strike your incision when you arrive home at least once daily. Do not take a tub bath, sit in a hot tub or go into a swimming pool until after your first recheck in the office. SPECIAL CARE INSTRUCTIONS: VERY IMPORTANT TO READ AND REVIEW A. Your surgical incision has been closed with a cosmetic suture under the skin that will dissolve in about 6 weeks. In 14 days, you can use a pair of clean scissors and cut the suture that is left outside of the skin at the ends of your incision. 1. The small skin tapes can be removed 7 days after surgery if they have not fallen off by that point. 2. You may keep the wound open to air as much as possible to promote healing after post-op day number 5 unless told otherwise by your doctor. 3. If you think the wound looks like it is becoming infected (redness or worsening drainage) and/or you are experiencing fever, chill or worsening back pain and muscle spasms, contact the office so that we may evaluate you as soon as possible. B. Complications are uncommon, but please contact us if you have any signs or symptoms of: 1. wound infection (fever higher than 102.5 degrees F, redness, separation of wound, drainage, or increasing pain from the incision) 2. blood clots in legs (pain, swelling, redness and warmth in legs) 3. urinary tract infection (fever higher than 102.5 degrees F, burning upon urination or increased frequency of urination) 4. nerve problems (inability to walk on your toes or heels, numbness, loss of bowel or bladder control) 5. any other symptoms that concern you C. Please call the office at if you have any concerns or questions about your operation or recovery. D. No smoking! Smoking drastically decreases the chance of a solid fusion. E. Do not take any anti-inflammatory medications (Indocin, Advil, Motrin, Aspirin, Naprosyn, etc.) as these may inhibit the chance of a solid fusion. Tylenol is okay to take for pain. MANAGING PAIN AFTER SPINAL SURGERY 1. Narcotic medication is intended for short-term use and will be provided for surgical pain. Surgical pain usually lasts for a period of 4-6 weeks. Narcotic medication includes Percocet, Vicodin, Darvocet, Tylenol #3 or Lortab. 2. Longer-term pain is more appropriately treated with non-narcotic medication such as Tylenol ES. 3. Muscle spasm is not appropriately treated with narcotics. Muscle relaxers such as Soma, Flexeril or Skelaxin can be used along with Tylenol ES. 4. Remember that we all live with some "aches and pains". This is not unusual or uncommon after an injury or as we get older. a. Back pain is expected and may include muscle spasms for 4 to 6 weeks after surgery. The pain should gradually improve. If the pain worsens for no apparent reason, please contact the office. b. Intermittent leg pain may also be experienced and should not be concerned about unless it worsens for no apparent reason. If so, please contact the office. 5. We will provide appropriate medication within the normal guidelines of their prescribed use. We will also be very cautious and aware of potential abuse and extended duration of patients' medication needs. a. Pain medications are for your comfort and to assist with sleep and rest so that the tissue can heal. They are not provided in order to return to normal activity and should not be used through the day. To do so or worsening pain at night can result from ongoing tissue damage and development of tolerance to the prescribed medicine. 6. Please allow 2-3 days to process refills. Prescriptions will not be mailed but must be picked up at the office. FOLLOW UP VISIT: Keep your scheduled follow-up appointment. Any questions, please call the office at . Pending Studies at Discharge: No Stand-Alone Forms: [facility] Patient informed of condition?: Yes DNR: No Discharge Level of Care: Acute rehab Communicable Disease: No Discharge Prognosis: Improving Lines: None Urinary Catheter: No Medications and DC Order Prescriptions: New morphine 15 mg Tablet Extended Release 30 mg PO BID Qty: 14 RF: 0 oxycodone 5 mg tablet 5 mg PO Q6H PRN (Reason: pain, severe) Qty: 30 RF: 0 Continued cyclobenzaprine 10 mg Tablet 10 mg PO BID RF: 0 clonidine HCl 0.1 mg Tablet 0.3 mg PO HS RF: 0 tramadol 50 mg Tablet 50 mg PO Q6H PRN (Reason: Pain) RF: 0 aspirin 325 mg Tablet 650 mg PO QAM RF: 0 sennosides-docusate sodium [Senokot-S] 8.6-50 mg Tablet 1 tab-cap PO UD PRN (Reason: Constipation) RF: 0 naproxen [Naprosyn] 250 mg Tablet 250 mg PO BID PRN (Reason: Pain) RF: 0 lisinopril [Prinivil] 20 mg Tablet 20 mg PO QAM RF: 0 morphine [MS Contin] 15 mg Tablet Extended Release 15 mg PO BID RF: 0 Discharge Orders: Discharge Order (Routine); Ordered 12/30/19 Ordered By: René Brown Admission Data Admit Date/Time: 12/26/19 14:14 Attending Provider: René Brown Admit Provider: René Brown Primary Care Provider: Kev Bray Other Providers: Justin Pereira ; Derrek Silva
--- NOTE | 2019-12-30 08:57 | Hospitalist Progress Note ---
Date of Service December 30, 2019 Assessment & Plan (1) Neurogenic claudication due to lumbar spinal stenosis: POD#4 T12-L4 decompression and fusion by Dr. Brown pain/wound management per ortho [place] cath still in place plan to d/c today to [facility] [place] rehab (2) Hypertension: BP continues to be elevated, 172/88 Likely elevated in setting of pain, steroid use and possible uncontrolled at baseline Lisinopril increased from 20 mg to 40 mg starting 12/28 He has also been receiving as needed hydralazine, last dose ~ 20:00 12/28 Monitor BP- Wheezing, possible underlying COPD Patient is an active smoker Denies shortness of breath or cough, wheezing improving CXR no pneumonia States he was prescribed with an inhaler but cannot afford the second inhaler Started Breo, and as needed nebs; also on Decadron IV for Back Surgery will check with case management re: insurance coverage (3) DVT prophylaxis: TEDs/SCDs as per spine Ortho Disposition: Discharge to rehab today Patient was seen and examined in collaboration with Dr. Silva, please see addendum Thank you for this consultation. We will follow the patient with you during their hospital stay. You can reach a member of the [facility]ist Team 11/09 via pager @ [phone]. Admission and Anticipated Discharge Date Admission Date: December 26, 2019 Supervising Physician Co-Signing Physician Notes Attending Addendum: delayed entry date of service 12/30/19 care coordinated with NAZARIO Thornton please refer to her notes for full details, I agree with her notes patient seen and examined, records reviewed by myself as well on exam, patient seen resting in bed, sitting up, not in distress still has some back pain denies headache, dyspnea, dizziness, chest pain no other symptoms VS noted and reviewed oriented x 3, not in distress, speaks in sentences with no effort nor accessory muscle use normal rate, regular rhythm, no murmurs clear breath sounds bilaterally non distended, soft, nontender no bipedal edema, erythema, warmth no neuro deficits labs noted and reviewed ASSESSMENT AND PLAN s/p Lumbar Spine Surgery for transfer to Rehab today DVT prophylaxis, pain control per Ortho Hypertension Lisinopril increased to 40mg po daily Underlying COPD Breo ordered other diagnoses and plan of care as per NAZARIO Thornton's notes Derrek Silva MD Subjective Patient seen and examined in room 321. Follow-up lumbar surgery, HTN, and wheezing. He continues to complain of burning and tearing pain in his low back. Currently 09/28. Denies radicular symptoms. Continues to have [place] cath in place. Did move bowels this morning. Denies fever, chills, sweats, lightheadedness, dizziness, chest pain, shortness breath, cough, nausea, vomiting, abdominal pain. He is a daily smoker but denies routine alcohol use. His blood pressure has been elevated and recently had increase in lisinopril. He denies any current wheezing, but states he has wheezed since the s. Review of Systems Review of Systems: All systems reviewed & are unremarkable except as noted in HPI & below Physical Exam Physical Exam: Gen: WD/WN, male, sitting up in bedside chair, NAD, A&O x3 HEENT: Normocephalic, atraumatic, conjunctivae moist, sclerae anicteric, mucous membranes moist. Lung: Clear to Auscultation bilaterally, no wheezes/rales/rhonchi Heart: Regular rate, regular rhythm, no murmurs, rubs, or gallops Abdomen: Soft, NT, ND +BS x 4 Extremities: No edema, lumbar dressing CDI, ARNULFO drain with serosanguineous drainage Skin: Warm, no rash, negative turgor. : [place] catheter draining yellow urine Results & Data Results & Data ([facility]) Vital Signs (Past 12 Hours) Vital Signs Temp Pulse Resp BP BP Pulse Ox 12/30/19 08:07 36.5 C 90 18 172/88 H 95 12/29/19 23:44 36.5 C 87 16 155/82 H 95 Medications Administered Albuterol (Albuterol Hfa 8 Gm Inhaler) 2 puffs INH Q4H PRN PRN Reason: sob/wheezing Stop: 01/26/20 17:44 Last Admin: 12/28/19 07:52 Dose: 2 puffs Documented by: [id number] Admin: 12/27/19 19:24 Dose: 2 puffs Documented by: [id number] Aspirin (Aspirin 325 Mg Ectab) 650 [facility] [place] [facility] [place] Stop: 01/26/20 08:59 Last Admin: 12/29/19 08:14 Dose: 650 mg Documented by: [id number] Admin: 12/28/19 07:43 Dose: 650 mg Documented by: [id number] Admin: 12/27/19 07:47 Dose: 650 mg Documented by: [id number] Clonidine HCl (Clonidine Hcl 0.1 Mg Tab) 0.3 mg PO HS ADONIS Stop: 01/25/20 20:59 Last Admin: 12/29/19 20:38 Dose: 0.3 mg Documented by: [id number] Admin: 12/28/19 20:36 Dose: 0.3 mg Documented by: [id number] Admin: 12/27/19 21:44 Dose: 0.3 mg Documented by: [id number] Admin: 12/26/19 20:51 Dose: 0.3 mg Documented by: [id number] Fluticasone/Vilanterol (Fluticasone/Vilanterol 200/25mcg 14 Puffs/Inhaler) 1 puffs INH DAILY ADONIS Stop: 01/27/20 08:59 Last Admin: 12/29/19 08:14 Dose: 1 puffs Documented by: [id number] Admin: 12/28/19 07:43 Dose: 1 puffs Documented by: [id number] Hydralazine HCl (Hydralazine Hcl 20 Mg/Ml Vial) 10 mg IV Q6H PRN PRN Reason: hypertension Stop: 01/26/20 12:44 Last Admin: 12/29/19 20:48 Dose: 10 mg Documented by: [id number] Admin: 12/28/19 07:44 Dose: 10 mg Documented by: [id number] Admin: 12/27/19 17:36 Dose: 10 mg Documented by: [id number] Hydromorphone HCl (Hydromorphone Inj 1 Mg/Ml Syringe) 1 mg IV Q3H PRN PRN Reason: severe pain (scale 7-10) Stop: 01/09/20 15:05 Last Admin: 12/28/19 13:48 Dose: 1 mg Documented by: [id number] Admin: 12/27/19 11:46 Dose: 1 mg Documented by: [id number] Admin: 12/27/19 08:43 Dose: 1 mg Documented by: [id number] Admin: 12/27/19 03:15 Dose: 1 mg Documented by: [id number] Admin: 12/26/19 16:00 Dose: 1 mg Documented by: [id number] Dexamethasone Sodium Phosphate (8 mg/ Syringe) 2 mls @ 1 mls/min IV DAILY ADONIS Stop: 01/27/20 10:59 Last Admin: 12/29/19 08:13 Dose: 1 mls/min Documented by: [id number] Admin: 12/28/19 11:21 Dose: 1 mls/min Documented by: [id number] Lorazepam (Lorazepam 0.5 Mg Tab) 0.5 mg PO Q8H PRN PRN Reason: Sedation/Anxiety Stop: 01/25/20 15:05 Last Admin: 12/29/19 20:37 Dose: 0.5 mg Documented by: [id number] Admin: 12/29/19 12:07 Dose: 0.5 mg Documented by: [id number] Admin: 12/29/19 00:43 Dose: 0.5 mg Documented by: [id number] Admin: 12/28/19 10:59 Dose: 0.5 mg Documented by: [id number] Admin: 12/27/19 11:45 Dose: 0.5 mg Documented by: [id number] Magnesium Hydroxide (Magnesium Hydroxide Susp 30 Ml Udc) 30 ml PO DAILY PRN PRN Reason: Constipation Stop: 01/25/20 15:05 Last Admin: 12/30/19 04:47 Dose: 30 ml Documented by: [id number] Morphine Sulfate (Morphine Sulfate Cr 15 Mg Tabcr) 30 mg PO BID ADONIS Stop: 01/10/20 20:59 Last Admin: 12/29/19 20:37 Dose: 30 mg Documented by: [id number] Admin: 12/29/19 08:13 Dose: 30 mg Documented by: [id number] Admin: 12/28/19 20:36 Dose: 30 mg Documented by: [id number] Admin: 12/28/19 07:44 Dose: 30 mg Documented by: [id number] Admin: 12/27/19 21:44 Dose: 30 mg Documented by: [id number] Oxycodone HCl (Oxycodone Hcl Ir 5 Mg Tab (Immediate Release)) 5 - 10 mg PO Q4H PRN PRN Reason: Moderate-Severe Pain & Pre PT Stop: 01/09/20 15:05 Last Admin: 12/30/19 04:47 Dose: 10 mg Documented by: [id number] Admin: 12/29/19 23:53 Dose: 10 mg Documented by: [id number] Admin: 12/29/19 19:33 Dose: 10 mg Documented by: [id number] Admin: 12/29/19 14:20 Dose: 10 mg Documented by: [id number] Admin: 12/29/19 09:19 Dose: 10 mg Documented by: [id number] Admin: 12/28/19 11:19 Dose: 10 mg Documented by: [id number] Admin: 12/28/19 06:19 Dose: 10 mg Documented by: [id number] Admin: 12/28/19 00:33 Dose: 10 mg Documented by: [id number] Admin: 12/27/19 19:12 Dose: 10 mg Documented by: [id number] Admin: 12/27/19 14:53 Dose: 10 mg Documented by: [id number] Admin: 12/27/19 11:11 Dose: 10 mg Documented by: [id number] Admin: 12/27/19 02:17 Dose: 10 mg Documented by: [id number] Admin: 12/26/19 18:55 Dose: 10 mg Documented by: [id number] Polyethylene Glycol (Polyethylene (Miralax) 17 Gm Pack) 17 gm PO Q6 ADONIS Stop: 01/26/20 05:59 Last Admin: 12/30/19 04:53 Dose: 17 gm Documented by: [id number] Admin: 12/29/19 23:59 Dose: 17 gm Documented by: [id number] Admin: 12/29/19 19:34 Dose: 17 gm Documented by: [id number] Admin: 12/29/19 12:08 Dose: 17 gm Documented by: [id number] Admin: 12/29/19 05:22 Dose: 17 gm Documented by: [id number] Admin: 12/29/19 00:40 Dose: Not Given Documented by: [id number] Admin: 12/28/19 17:28 Dose: 17 gm Documented by: [id number] Admin: 12/28/19 11:20 Dose: 17 gm Documented by: [id number] Admin: 12/28/19 05:37 Dose: 17 gm Documented by: [id number] Admin: 12/28/19 00:35 Dose: Not Given Documented by: [id number] Admin: 12/27/19 17:37 Dose: 17 gm Documented by: [id number] Admin: 12/27/19 12:43 Dose: 17 gm Documented by: [id number] Admin: 12/27/19 05:23 Dose: Not Given Documented by: [id number] Senna/Docusate Sodium (Docusate Sodium/Senna 50/8.6mg Tab) 2 tab PO HS ADONIS Stop: 01/25/20 20:59 Last Admin: 12/29/19 20:38 Dose: 2 tab Documented by: [id number] Admin: 12/28/19 20:36 Dose: 2 tab Documented by: [id number] Admin: 12/27/19 21:44 Dose: 2 tab Documented by: [id number] Admin: 12/26/19 20:45 Dose: Not Given Documented by: [id number] Discontinued Medications Acetaminophen (Acetaminophen 500 Mg Tab) 1,000 mg PO PREOP ADONIS Stop: 12/26/19 18:00 Last Admin: 12/26/19 09:36 Dose: 1,000 mg Documented by: [id number] Bacitracin (Bacitracin Inj 50,000 Unit Vial) Confirm Administered Dose 50,000 units .ROUTE .STK-MED ONE Stop: 12/26/19 10:19 Last Admin: 12/26/19 13:23 Dose: 50,000 units Documented by: [id number] Bupivacaine HCl (Bupivacaine 0.5 % 5 Mg/1 Ml Mpf 30ml Vial) Confirm Administered Dose 30 ml .ROUTE .STK-MED ONE Stop: 12/26/19 10:19 Last Admin: 12/26/19 13:22 Dose: 30 ml Documented by: [id number] Celecoxib (Celebrex 200 Mg Cap) 200 mg PO PREOP ADONIS Stop: 12/26/19 18:00 Last Admin: 12/26/19 09:36 Dose: 200 mg Documented by: [id number] Epinephrine HCl (Epinephrine Inj 1 Mg/Ml Amp) Confirm Administered Dose 1 mg .ROUTE .STK-MED ONE Stop: 12/26/19 10:19 Last Admin: 12/26/19 13:23 Dose: 0.15 mg Documented by: [id number] Fentanyl Citrate (Fentanyl Citrate 100 Mcg/2 Ml Vial) 25 mcg IV Q5M PRN PRN Reason: PACU Use Only-Pain Stop: 12/26/19 17:19 Last Admin: 12/26/19 14:33 Dose: 25 mcg Documented by: [id number] Admin: 12/26/19 14:28 Dose: 25 mcg Documented by: [id number] Admin: 12/26/19 14:23 Dose: 25 mcg Documented by: [id number] Admin: 12/26/19 14:18 Dose: 25 mcg Documented by: [id number] Gabapentin (Gabapentin 300 Mg Cap) 300 mg PO PREOP ADONIS Stop: 12/26/19 18:00 Last Admin: 12/26/19 09:36 Dose: 300 mg Documented by: [id number] Lactated Ringer's (Lr) 1,000 mls @ 15 mls/hr IV .Q24H ADONIS Stop: 12/27/19 05:59 Last Infusion: 12/26/19 10:29 Dose: 0 mls/hr Documented by: [id number] Admin: 12/26/19 10:09 Dose: 15 mls/hr Documented by: [id number] Lactated Ringer's (Lr) 1,000 mls @ 15 mls/hr IV .Q24H ADONIS Stop: 12/27/19 05:59 Last Admin: 12/26/19 10:11 Dose: Not Given Documented by: [id number] Cefazolin Sodium (Ancef 2000mg) 2,000 mg in 15 mls @ 3.75 mls/min IV PREOP ADONIS; Protocol Stop: 12/26/19 18:00 Last Admin: 12/26/19 10:29 Dose: 3.75 mls/min Documented by: [id number] Cefazolin Sodium (Ancef 2000mg) 2,000 mg in 15 mls @ 3.75 mls/min IV Q8H ADONIS; Protocol Stop: 12/27/19 02:33 Last Admin: 12/27/19 02:16 Dose: 3.75 mls/min Documented by: [id number] Admin: 12/26/19 18:55 Dose: 3.75 mls/min Documented by: [id number] Sodium Chloride (Nss 1000ml) 1,000 mls @ 150 mls/hr IV .Q6H40M ADONIS Stop: 01/25/20 15:05 Last Admin: 12/27/19 04:32 Dose: Not Given Documented by: [id number] Infusion: 12/27/19 04:32 Dose: 0 mls/hr Documented by: [id number] Admin: 12/26/19 22:05 Dose: 150 mls/hr Documented by: [id number] Infusion: 12/26/19 22:05 Dose: 150 mls/hr Documented by: [id number] Admin: 12/26/19 15:56 Dose: 150 mls/hr Documented by: [id number] Ipratropium [place] (Ipratropium [place] Neb Soln 0.02% 2.5 Ml Vial) 0.5 mg INH Q6R ADONIS Stop: 01/27/20 12:59 Last Admin: 12/29/19 13:37 Dose: 0.5 mg Documented by: [id number] Admin: 12/29/19 07:29 Dose: 0.5 mg Documented by: [id number] Admin: 12/29/19 00:06 Dose: 0.5 mg Documented by: [id number] Admin: 12/28/19 19:21 Dose: 0.5 mg Documented by: [id number] Admin: 12/28/19 12:54 Dose: 0.5 mg Documented by: [id number] Levalbuterol HCl (Levalbuterol 1.25mg/0.5ml Neb) 1.25 mg INH Q6R [facility] Stop: 01/27/20 12:59 Last Admin: 12/29/19 13:38 Dose: 1.25 mg Documented by: [id number] Admin: 12/29/19 07:29 Dose: 1.25 mg Documented by: [id number] Admin: 12/29/19 00:06 Dose: 1.25 mg Documented by: [id number] Admin: 12/28/19 19:22 Dose: 1.25 mg Documented by: [id number] Admin: 12/28/19 12:54 Dose: 1.25 mg Documented by: [id number] Lisinopril (Lisinopril 20 Mg Tab) [facility] [place] [facility] [place]: 01/26/20 08:59 Last Admin: 12/29/19 08:14 Dose: 20 mg Documented by: [id number] Admin: 12/28/19 07:43 Dose: 20 mg Documented by: [id number] Admin: 12/27/19 07:47 Dose: 20 mg Documented by: [id number] Lisinopril (Lisinopril 20 Mg Tab) 20 mg PO NOW STA Stop: 12/26/19 17:53 Last Admin: 12/26/19 18:55 Dose: 20 mg Documented by: [id number] Lisinopril (Lisinopril 20 Mg Tab) 20 mg PO NOW STA Stop: 12/29/19 14:55 Last Admin: 12/29/19 15:55 Dose: 20 mg Documented by: [id number] Miscellaneous ( Floseal Hemostatic Matrix 10ml) 10 ml TOP ONCE ONE Stop: 12/26/19 11:07 Last Admin: 12/26/19 13:24 Dose: 30 ml Documented by: [id number] Morphine Sulfate (Morphine Sulfate Cr 15 Mg Tabcr) 15 mg PO BID ADONIS Stop: 01/09/20 20:59 Last Admin: 12/27/19 07:48 Dose: 15 mg Documented by: [id number] Admin: 12/26/19 20:51 Dose: 15 mg Documented by: [id number]
[2019-12-30] MEDS ORDERED: lisinopril 40 MG TAB PO SCH (09:00)
[2019-12-30] MEDS: FLUTICASONE/VILANTEROL 200/25MCG 14 PUFFS/INHALER INH SCH (09:12)
[2019-12-30] MEDS: DEXAMETHASONE SOD PHOSPHATE 8 MG in SYRINGE 0 ML IV SCH (09:12)
[2019-12-30] MEDS: ASPIRIN 325 MG ECTAB PO SCH (09:13)
[2019-12-30] MEDS: MoRPHine SULFATE CR 15 MG TABCR PO SCH (09:20)
[2019-12-30] MEDS: LORazepam 0.5 MG TAB PO PRN (15:21)
== END 2019-12-30 15:41 | DRG 455 ==
LOC: ASU 08:17 → 3E 14:14